=== PATIENT | male | born 1995 | race Hispanic/Latino ===

== ENCOUNTER 2018-01-15 00:18 | Emergency (ER) | payer BC ==
[~2018-01-15] VITALS: Ht 177.8 cm; Wt 56.7 kg
[2018-01-15] MEDS ORDERED: HYDROCODONE/APAP 5MG-325MG TAB PO ONE (01:00)
--- NOTE | 2018-01-15 01:05 | Diagnostic Imaging Report ---
TOES LEFT MIN 2 VIEWS HISTORY: 15 total left foot pain. COMPARISON: None FINDINGS: Bones: Acute, incomplete fracture of the mid proximal fifth digit Osseous alignment is within normal limits. Joints: The joint spaces are well-maintained. Soft tissues: Soft tissue edema noted throughout the fifth digit IMPRESSION: Acute, incomplete, fracture of the mid proximal fifth digit Signed by: Dr. Javon Mason M.D. on 01/15/2018 1:02 AM
== END 2018-01-15 01:42 | disposition home or self-care (01) ==
LOC: ER 00:18
DX: S92.515A Nondisplaced fracture of proximal phalanx of left lesser toe(s), initial encounter for closed fracture (principal); W22.8XXA Striking against or struck by other objects, initial encounter; Y92.008 Other place in unspecified non-institutional (private) residence as the place of occurrence of the external cause
CPT/HCPCS: 99283